=== PATIENT | female | born 1940 | race Native Hawaiian/Other Pacific Islander ===

== ENCOUNTER 2016-12-26 05:47 | Day surgery (SDC) | payer MEDICARE ==
[2016-12-24 14:06] VITALS: BMI 30.5
[2016-12-26] MEDS ORDERED: Lidocaine 1% Inj (20ml) ONE (06:52)
--- NOTE | 2016-12-26 08:46 | PCM.SURG1 ---
Surgeon's Initial Post Op Note - Surgeon's Notes Surgeon: Laureano Tufting Machine Operator Single Needle: Wendy Cruz Type of Anesthesia: Local Anesthesia Administered By: Laureano Pre-Operative Diagnosis: Lipoma Operative Findings: Lipoma Post-Operative Diagnosis: Lipoma Operation Performed: Excision of 2.5cm lipoma of right arm and left shoulder Specimen/Specimens Removed: lipomas Estimated Blood Loss: EBL {In ML}: 10 Date of Surgery/Procedure: 12/26/16 Time of Surgery/Procedure: 08:45
[2016-12-26 08:59] VITALS: BP 138/73; PULSE 77; RESP 16; TEMP 98.8; O2SAT 97
--- NOTE | 2016-12-26 10:52 | OP ---
PROCEDURE DATE: 12/26/2016 PREOPERATIVE DIAGNOSIS: Lipoma of right arm and left shoulder. PROCEDURE: Guided excision of 2.5 cm lipoma of left shoulder and right arm. The patient was given local anesthesia. The area was excised. The wound was closed primarily with subcuticular closure and Steri-Strips applied. Standard skin prep out was carried out ahead of time. SURGEON: Jose Angel Tinsley Jr., MD ASSISTANTS: None. ANESTHESIOLOGIST: Myself with 1% Xylocaine. Jose Angel Tinsley Jr., MD cc: Preston Woodall MD
== END 2016-12-26 09:12 | disposition home or self-care (01) ==
LOC: C.SDS 05:47
PROVIDERS: ATTEND Surgery Vascular Surgery
DX: D17.22 Benign lipomatous neoplasm of skin and subcutaneous tissue of left arm (principal); D17.21 Benign lipomatous neoplasm of skin and subcutaneous tissue of right arm